=== PATIENT | male | born 1995 | race Caucasian/White ===

== ENCOUNTER 2017-01-14 18:00 | Emergency (ER) | payer SELFPAY ==
[2017-01-14] MEDS ORDERED: POVIDONE IODINE 10 % 15 ML UD TOP ONE (18:06)
[2017-01-14 18:13] VITALS: TEMP 98.7
--- NOTE | 2017-01-14 19:10 | RAD ---
EXAM DESCRIPTION: Hand,Left 3 Views CLINICAL HISTORY: 21 years ,Male smashed hand while working on car COMPARISON: None. TECHNIQUE: LEFT hand, Three view FINDINGS: No acute fractures or dislocations are identified. No osseous destructive lesions. No radiopaque foreign object noted. There is a soft tissue defect over the palmar surface of the hand at the level of the fifth and fourth metacarpals IMPRESSION: No acute fracture or dislocation is identified. Soft tissue swelling and laceration over the fifth digit along the palmar surface Electronically signed by: Juanita Vernon 01/14/2017 7:08 PM CDT
[2017-01-14] MEDS ORDERED: LIDOCAINE 1% W/ EPINEPHRINE 20 ML VIAL INJ ONE (19:20)
--- NOTE | 2017-01-14 19:22 | ED.PDOC ---
History of Present Illness - General Chief Complaint: Laceration Stated Complaint: laceration Time Seen by Provider: 01/14/17 19:15 Source: patient, RN notes reviewed Exam Limitations: no limitations - History of Present Illness Initial Comments: Stanley Davis 21 y/o male stated working on his car this afternoon drive line of the car fell on his left hand sustaining laceration. Timing/Duration: just prior to arrival Severity: moderate Location: extremities - left hand Improving Factors: nothing Associated Symptoms: denies symptoms Allergies/Adverse Reactions: Allergies NO KNOWN ALLERGY Allergy (Verified 01/14/17 18:13) Home Medications: Ambulatory Orders Cephalexin 1,000 mg PO BID #30 cap 01/14/17 Tramadol HCl 50 mg PO Q4HR PRN #14 tab 01/14/17 Review of Systems - Review of Systems Constitutional: States: no symptoms reported EENTM: States: no symptoms reported Respiratory: States: no symptoms reported Cardiology: States: no symptoms reported Gastrointestinal/Abdominal: States: no symptoms reported Genitourinary: States: no symptoms reported Musculoskeletal: States: no symptoms reported Skin: States: see HPI Neurological: States: no symptoms reported Past Medical History (General) - Patient Medical History Hx Asthma: No Surgical History: no surgical history - Vaccination History Hx Tetanus, Diphtheria Vaccination: Yes - 1 year ago Hx Influenza Vaccination: No - Social History Hx Tobacco Use: Yes Family Medical History - Family History Father Family History: Unknown Living Status: Unknown Physical Exam - Physical Exam General Appearance: Alert, No apparent distress Eyes, Ears, Nose, Throat Exam: PERRL/EOMI, normal ENT inspection Neck: non-tender, full range of motion, normal inspection Cardiovascular/Chest: normal peripheral pulses, regular rate, rhythm, no murmur Respiratory: chest non-tender, lungs clear Gastrointestinal/Abdominal: normal bowel sounds, non tender, soft, no organomegaly Back Exam: normal inspection Extremity: normal range of motion, non-tender Neurologic: no motor/sensory deficits, alert, oriented x 3 Skin Exam: warm/dry, normal color, other - 6 cm laceration palmar aspect left hand deep into sq and musculoaponeurotic layer Skin Problem Location: other - left hand Skin Character: other - laceration Progress - Progress Progress: 01/14/17 20:23 Vital Signs - 24 hr 01/14/17 18:10 Temperature 98.7 F Pulse Rate [ 89 Right Brachial] Respiratory 16 Rate Blood Pressure 140/87 [Right Arm] O2 Sat by Pulse 98 Oximetry - EKG/XRAY/CT XRAY: hand - left no fracture Procedures - Laceration/Wound Repair Left Hand Wound Length (cm): 6 Wound's Depth, Shape: into muscle, linear Wound Explored: grease cleanse Irrigated w/ Saline (cc's): 50 Betadine Prep?: Yes Anesthesia: Lidocaine w/ Epi Volume Anesthetic (cc's): 10 Wound Debrided: minimal Wound Repaired With: sutures Suture Size/Type: 4:0 Number of Sutures: 10 Layer Closure?: Yes Deep Layer Suture Size/Type: 4:0, vicryl rapide Number Deep Layer Sutures: 2 Sterile Dressing Applied?: Yes Splint Applied?: Yes - kelsy wrap Sling Applied?: No Departure - Departure Clinical Impression: Laceration of hand, left, complicated Qualifiers: Encounter type: initial encounter Qualified Code(s): S61.412A - Laceration without foreign body of left hand, initial encounter Crush injury of hand Qualifiers: Encounter type: initial encounter Laterality: left Qualified Code(s): S67.22XA - Crushing injury of left hand, initial encounter Time of Disposition: 20:28 Disposition: Discharge to Home or Self Care Condition: Good Departure Forms: ED Discharge - Pt. Copy, Patient Portal Self Enrollment Instructions: How to Care for a Laceration After Repair, DI for Laceration Repair -- Complex Prescriptions: Tramadol HCl 50 mg PO Q4HR PRN #14 tab PRN Reason: Pain Cephalexin 1,000 mg PO BID #30 cap Home Medications: Ambulatory Orders Cephalexin 1,000 mg PO BID #30 cap 01/14/17 Tramadol HCl 50 mg PO Q4HR PRN #14 tab 01/14/17 Additional Instructions: ELEVATE LEFT HAND degrees @ bedtime for 10 days;Return to emergency room if increase swelling;REMOVAL OF STITCHES 01/26/2017 [facility]
[2017-01-14] MEDS ORDERED: NEOMYCIN-BACITRACIN-POLYMYXIN 0.9 GM UD TOP ONE (20:03)
[2017-01-14] MEDS ORDERED: HYDROCOD/APAP 10/325 (ER DISP) # 3 tablets PO ONE (20:29)
[2017-01-14] MEDS ORDERED: HYDROcodone 10MG/APAP 325MG 1 EA TAB PO ONE (20:29)
[2017-01-14] MEDS ORDERED: ceFAZolin SODIUM 1 GM VIAL IM ONE (20:29)
[2017-01-14] MEDS ORDERED: WATER FOR INJ 10 ML VIAL INJ ONE (20:38)
[2017-01-14 20:48] VITALS: BP 134/92; O2SAT 99
== END 2017-01-14 20:54 | disposition home or self-care (01) ==
LOC: ER 18:00
DX: S61.412A Laceration without foreign body of left hand, initial encounter (principal); Z87.891 Personal history of nicotine dependence; W23.0XXA Caught, crushed, jammed, or pinched between moving objects, initial encounter
CPT/HCPCS: 73130; A4216; J0690